=== PATIENT | female | born 1960 | race Caucasian/White ===

== ENCOUNTER 2022-04-21 03:18 | Emergency (ER) | payer OTHER ==
[~2022-04-21] VITALS: Ht 162.6 cm; Wt 70.8 kg
== END 2022-04-21 04:30 | disposition home or self-care (01) ==
LOC: ER 03:22
DX: M25.512 Pain in left shoulder (principal); M25.511 Pain in right shoulder; D68.9 Coagulation defect, unspecified; D86.9 Sarcoidosis, unspecified; Z86.718 Personal history of other venous thrombosis and embolism
CPT/HCPCS: 99283